=== PATIENT | female | born 1995 | race African-American/Black ===

== ENCOUNTER 2016-10-29 12:03 | Emergency (ER) | payer OTHER ==
[~2016-10-29] VITALS: Ht 165.1 cm; Wt 95.0 kg
[2016-10-29 12:27] VITALS: BP 130/60
[2016-10-29] MEDS ORDERED: NAPROSYN500 MG PO (13:51)
== END 2016-10-29 13:57 | disposition home or self-care (01) ==
LOC: EME 12:03
DX: N63 Unspecified lump in breast (principal); N64.4 Mastodynia; Z80.3 Family history of malignant neoplasm of breast
CPT/HCPCS: 99281; 99284